=== PATIENT | male | born 1965 | race American Indian/Alaskan Native ===

== ENCOUNTER 2021-01-06 09:49 | Outpatient (CLI) | payer OTHER ==
--- NOTE | 2021-01-06 10:50 | XRay Report ---
LUMBAR SPINE 3 VIEWS INDICATION: BACK PAIN COMPARISON: None. FINDINGS: No acute, displaced fracture is seen. Alignment is within normal limits. Discogenic and facet degenerative changes are noted in the mid to lower lumbar spine. CONCLUSION: 1. No acute findings. 2. Degenerative changes, as above. Signer Name: Phuc Jimenez MD Signed: 01/06/2021 10:46 AM Workstation Name: [employer]
== END 2021-01-06 09:50 | disposition home or self-care (01) ==
LOC: XRAY 09:49
PROVIDERS: ATTEND Internal Medicine
DX: M47.816 Spondylosis without myelopathy or radiculopathy, lumbar region (principal); M51.36 Other intervertebral disc degeneration, lumbar region
CPT/HCPCS: 72100